=== PATIENT | female | born 2000 | race African-American/Black ===

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

== ENCOUNTER 2019-02-02 13:55 | Emergency (ER) | payer OTHER, SELFPAY ==
[~2019-02-02] VITALS: Ht 157.5 cm; Wt 84.4 kg
[~2019-02-02 13:55] MED LIST changes: +ACYC800T PO; +HYDR-3164 PO; +NITR100C62 PO
[2019-02-02] MEDS ORDERED: IV NORMAL SALINE 1000ML BAG 1,000 ML IV SCH (15:07)
[2019-02-02] MEDS ORDERED: ONDANSETRON PF 4 MG/2 ML VIAL. IV ONE (15:15)
[2019-02-02 15:22] LABS: BILIRUBIN,URINE NEGATIVE (NEG); CLARITY,URINE CLEAR; COLOR,URINE YELLOW; NITRITE,URINE NEGATIVE (NEG); PROTEIN,URINE NEGATIVE (NEG-TRACE); UROBILINOGEN,URINE 0.2 mg/dL (0.2 mg/dL)
--- NOTE | 2019-02-02 15:24 | PHYS DOC ---
Past Medical History Past Medical History: No Pertinent History Past Surgical History: No Surgical History Additional Information: non smoker Alcohol Use: None Drug Use: None Adult General Chief Complaint Chief Complaint: NAUSEA/VOMITING/DIARRHA HPI HPI Patient is a 18-year-old female who presents with nausea vomiting and diarrhea since 10 AM this morning. States that she has vomited 10 times at home. Has also been constantly having diarrhea. She denies fevers. Also states that she has not had a period since December 06 she is not on control. She rates her pain as 5 out of 10 and cramping. Review of Systems Review of Systems Constitutional: Denies fever or chills [] Eyes: Denies change in visual acuity, redness, or eye pain [] HENT: Denies nasal congestion or sore throat [] Respiratory: Denies cough or shortness of breath [] Cardiovascular: No additional information not addressed in HPI [] GI: Reports abdominal pain, nausea, vomiting but denies bloody stools or diarrhea [] : Denies dysuria or hematuria [] Musculoskeletal: Denies back pain or joint pain [] Integument: Denies rash or skin lesions [] Neurologic: Denies headache, focal weakness or sensory changes [] Endocrine: Denies polyuria or polydipsia [] Complete systems were reviewed and found to be within normal limits, except as documented in this note. Current Medications Current Medications Current Medications Medications (Trade) Dose Ordered Sig/Lorelei Start Time Stop Time Status Last Admin Dose Admin Ondansetron HCl (Zofran) 4 mg 1X ONCE 02/02/19 15:15 02/02/19 15:16 DC 02/02/19 15:47 4 MG Sodium Chloride 1,000 ml @ 1,000 mls/hr Q1H 02/02/19 15:07 02/02/19 16:06 DC 02/02/19 15:47 1,000 MLS/HR Allergies Allergies Allergies Coded Allergies Type Severity Reaction Last Updated Verified latex Allergy Intermediate Swelling. 06/23/18 Yes Physical Exam Physical Exam Constitutional: Well developed, well nourished, no acute distress, non-toxic appearance. [] HENT: Normocephalic, atraumatic, bilateral external ears normal, oropharynx moist, no oral exudates, nose normal. [] Eyes: PERRLA, EOMI, conjunctiva normal, no discharge. [] Neck: Normal range of motion, no tenderness, supple, no stridor. [] Cardiovascular:Heart rate regular rhythm, no murmur [] Lungs & Thorax: Bilateral breath sounds clear to auscultation [] Abdomen: Bowel sounds normal, soft, diffuse tenderness, no masses, no pulsatile masses. [] Skin: Warm, dry, no erythema, no rash. [] Back: No tenderness, no CVA tenderness. [] Extremities: No tenderness, no cyanosis, no clubbing, ROM intact, no edema. [] Neurologic: Alert and oriented X 3, normal motor function, normal sensory function, no focal deficits noted. [] Psychologic: Affect normal, judgement normal, mood normal. [] Current Patient Data Vital Signs Vital Signs Date Time Temp Pulse Resp B/P (MAP) Pulse Ox O2 Delivery O2 Flow Rate FiO2 02/02/19 16:30 73 15 128/77 (94) 100 Room Air 02/02/19 14:30 98.3 98.3 Lab Values Laboratory Tests Test 02/02/19 14:50 02/02/19 14:55 02/02/19 15:20 02/02/19 15:52 Urine Collection Type Unknown Urine Color Yellow Urine Clarity Clear Urine pH 6.0 Urine Specific [place] >=1.030 Urine Protein Negative mg/dL (NEG-TRACE) Urine Glucose (UA) Negative mg/dL (NEG) Urine Ketones (Stick) 15 mg/dL (NEG) Urine Blood Negative (NEG) Urine Nitrite Negative (NEG) Urine Bilirubin Negative (NEG) Urine Urobilinogen Dipstick 0.2 mg/dL (0.2 mg/dL) Urine Leukocyte Esterase Trace (NEG) Urine RBC 0 /HPF (0-2) Urine WBC 1-4 /HPF (0-4) Urine Squamous Epithelial Cells Mod /LPF Urine Bacteria 0 /HPF (0-FEW) Urine Mucus Marked /LPF POC Urine HCG, Qualitative Hcg positive (Negative) White Blood Count 7.2 x10^3/uL (4.0-11.0) Red Blood Count 4.53 x10^6/uL (3.50-5.40) Hemoglobin 12.5 g/dL (12.0-15.5) Hematocrit 38.2 % (36.0-47.0) Mean Corpuscular Volume 84 fL (79-100) Mean Corpuscular Hemoglobin 28 pg (25-35) Mean Corpuscular Hemoglobin Concent 33 g/dL (31-37) Red Cell Distribution Width 14.3 % (11.5-14.5) Platelet Count 256 x10^3/uL (140-400) Neutrophils (%) (Auto) 75 % (31-73) H Lymphocytes (%) (Auto) 16 % (24-48) L Monocytes (%) (Auto) 7 % (0-9) Eosinophils (%) (Auto) 2 % (0-3) Basophils (%) (Auto) 0 % (0-3) Neutrophils # (Auto) 5.5 x10^3uL (1.8-7.7) Lymphocytes # (Auto) 1.2 x10^3/uL (1.0-4.8) Monocytes # (Auto) 0.5 x10^3/uL (0.0-1.1) Eosinophils # (Auto) 0.1 x10^3/uL (0.0-0.7) Basophils # (Auto) 0.0 x10^3/uL (0.0-0.2) Sodium Level 136 mmol/L (136-145) Potassium Level 4.1 mmol/L (3.5-5.1) Chloride Level 102 mmol/L (98-107) Carbon Dioxide Level 22 mmol/L (21-32) Anion Gap 12 (6-14) Blood Urea Nitrogen 7 mg/dL (7-20) Creatinine 0.8 mg/dL (0.6-1.0) Estimated GFR (Cockcroft-Gault) 111.8 BUN/Creatinine Ratio 9 (6-20) Glucose Level 82 mg/dL (70-99) Calcium Level 9.1 mg/dL (8.5-10.1) Total Bilirubin 0.6 mg/dL (0.2-1.0) Aspartate Amino Transferase (AST) 18 U/L (15-37) Alanine Aminotransferase (ALT) 23 U/L (14-59) Alkaline Phosphatase 73 U/L (46-116) Total Protein 7.6 g/dL (6.4-8.2) Albumin 3.6 g/dL (3.4-5.0) Albumin/Globulin Ratio 0.9 (1.0-1.7) L Lipase 171 U/L (73-393) Maternal Serum HCG Beta Subunit 00355 mIU/mL (0-5) H Laboratory Tests 02/02/19 15:20 Laboratory Tests 02/02/19 15:20 EKG EKG [] Radiology/Procedures Radiology/Procedures []PATIENT: VALENTE FREEMAN RACCOUNT: [id number]#: [id number] : 2000 LOCATION: ER AGE: 18 SEX: F EXAM STATUS: REG ER ORD. PHYSICIAN: HERNÁN PIÑA APRN REASON: r/o ectopic/cramping PROCEDURE: OB < 14 WKS Obstetrical ultrasound, 02/02/2019: History: Cramping, Transabdominal scans were obtained. The uterus contains a single gestational sac. The gestational sac contains a pole demonstrating a crown-rump length of 9 mm compatible with a gestational age of 6 weeks and 6 days. This yields a sonographic EDC of 09/22/2019. cardiac activity is present with a heart rate of 139 bpm. There is no evidence of subchorionic hemorrhage. There is a 3 cm simple cyst in the right ovary. The left ovary is normal. The adnexal regions are otherwise unremarkable. No free fluid is evident in the pelvis. IMPRESSION: 1. Single viable intrauterine fetus of approximately 7 weeks gestational age. 2. Small right ovarian cyst. Course & Med Decision Making Course & Med Decision Making Pertinent Labs and Imaging studies reviewed. (See chart for details) Discussed signs and symptoms with patient. Will order urine test, ur inalysis, labs, and supportive care. Offered CT scan pending urine . Patient declined. Patient is . Will order beta hcg and order ultrasound to r/o ectopic. Ultrasound shows viable fetus and labs are unremarkable. Did show slight UTI. Will send home on Keflex. Will send patient home to follow up with [facility]. John Disclaimer Dragon Disclaimer This electronic medical record was generated, in whole or in part, using a voice recognition dictation system. Departure Departure Impression: Primary Impression: Additional Impressions: Nausea and vomiting during Urinary tract infection Disposition: HOME, SELF-CARE Condition: STABLE Referrals: NO PCP (PCP) SAIMA GALVAN Jr, MD Patient Instructions: ABCs of , Nausea and Vomiting, [id number], - Urinary Tract Infection Additional Instructions: Please follow up with [facility]. Please take all of antibiotic. Use Zofran as needed for n/v. Come back if any concerning symptoms. Scripts Pnv Cmb#95/Ferrous Fumarate/Fa ( TABLET) 1 Each Tablet 1 TAB PO DAILY, #30 TAB 11 Refills Prov: HERNÁN PIÑA APRN 02/02/19 Ondansetron (ONDANSETRON ODT) 4 Mg Tab.rapdis 1 TAB PO PRN Q6-8HRS, #20 TAB Prov: HERNÁN PIÑA APRN 02/02/19 Cephalexin (KEFLEX) 500 Mg Capsule 1 CAP PO BID for 7 Days, #14 CAP Prov: HERNÁN PIÑA APRN 02/02/19 Problem Qualifiers Primary Impression: Weeks of gestation: less than 8 weeks Qualified Codes: Z3A.01 - Less than 8 weeks gestation of HERNÁN PIÑA APRN February 02, 2019 15:24
[2019-02-02 15:30] LABS: BASO % 0 % (0-3); EOS # 0.1 x10^3/uL (0.0-0.7); EOS % 2 % (0-3); HEMATOCRIT 38.2 % (36.0-47.0); HEMOGLOBIN 12.5 g/dL (12.0-15.5); LYMPH # 1.2 x10^3/uL (1.0-4.8); LYMPH % 16 % (24-48); MEAN CORPUSCULAR HEMOGLOBIN 28 pg (25-35); MEAN CORPUSCULAR HGB CONC 33 g/dL (31-37); MEAN CORPUSCULAR VOLUME 84 fL (79-100); MONO # 0.5 x10^3/uL (0.0-1.1); MONO % 7 % (0-9); NEUT # 5.5 x10^3uL (1.8-7.7); NEUT % 75 % (31-73); PLATELET COUNT 256 x10^3/uL (140-400); RED BLOOD COUNT 4.53 x10^6/uL (3.50-5.40); RED CELL DISTRIBUTION WIDTH 14.3 % (11.5-14.5); WHITE BLOOD COUNT 7.2 x10^3/uL (4.0-11.0)
[2019-02-02 15:34] LABS: BACTERIA,URINE 0 /HPF (0-FEW); RBC,URINE 0 /HPF (0-2); SQUAMOUS EPITHELIAL CELL,UR MOD /LPF
[2019-02-02 15:44] LABS: CALCIUM 9.1 mg/dL (8.5-10.1); CREATININE 0.8 mg/dL (0.6-1.0); GFR 111.8; POTASSIUM 4.1 mmol/L (3.5-5.1)
[2019-02-02 15:57] LABS: ALBUMIN 3.6 g/dL (3.4-5.0); ALBUMIN/GLOBULIN RATIO 0.9 (1.0-1.7); TOTAL BILIRUBIN 0.6 mg/dL (0.2-1.0); TOTAL PROTEIN 7.6 g/dL (6.4-8.2)
[2019-02-02 16:30] VITALS: BP 128/77
--- NOTE | 2019-02-02 16:56 | RAD ---
Obstetrical ultrasound, 02/02/2019: History: Cramping, Transabdominal scans were obtained. The uterus contains a single gestational sac. The gestational sac contains a pole demonstrating a crown-rump length of 9 mm compatible with a gestational age of 6 weeks and 6 days. This yields a sonographic EDC of 09/22/2019. cardiac activity is present with a heart rate of 139 bpm. There is no evidence of subchorionic hemorrhage. There is a 3 cm simple cyst in the right ovary. The left ovary is normal. The adnexal regions are otherwise unremarkable. No free fluid is evident in the pelvis. IMPRESSION: 1. Single viable intrauterine fetus of approximately 7 weeks gestational age. 2. Small right ovarian cyst.
[2019-02-02] MEDS ORDERED: CEPH-264 PO (17:37)
[2019-02-02] MEDS ORDERED: ONDA4TAB12 PO (17:37)
[2019-02-02] MEDS ORDERED: PNV1TABL25 PO (17:38)
== END 2019-02-02 17:49 | disposition home or self-care (01) ==
LOC: ER 13:55
DX: O21.8 Other vomiting complicating pregnancy (principal); O23.41 Unspecified infection of urinary tract in pregnancy, first trimester; R19.7 Diarrhea, unspecified; R10.84 Generalized abdominal pain; Z91.040 Latex allergy status; Z3A.01 Less than 8 weeks gestation of pregnancy
CPT/HCPCS: 36415; 76801; 80053; 81001; 81025; 83690; 84702; 85025; 86900; 86901; 96361; 96374; 99285; J2405; J7030

== ENCOUNTER 2019-02-06 11:56 | Emergency (ER) | payer OTHER, SELFPAY ==
[~2019-02-06] VITALS: Ht 157.5 cm; Wt 84.4 kg
[~2019-02-06 11:56] MED LIST changes: +CEPH-264 PO; +ONDA4TAB12 PO; +PNV1TABL25 PO
[2019-02-06 12:12] VITALS: BP 140/70
--- NOTE | 2019-02-06 13:21 | PHYS DOC ---
Past Medical History Past Medical History: No Pertinent History Past Surgical History: No Surgical History Alcohol Use: None Drug Use: None Adult General Chief Complaint Chief Complaint: [facility] HPI Patient is a 18 year old female A 1 at 7 weeks of gestation who presents with complaining of abdominal pain and vaginal bleeding since last night. Patient complaining of vaginal spotting with dark blood since last night and lower abdominal cramping pain without nausea, vomiting, urinary symptoms, diarrhea and constipation. Patient had intrauterine on 02/02/19 at 7 weeks of gestation and ultrasound with O+ blood type and hCG level of 75,000. Review of Systems Review of Systems Constitutional: Denies fever or chills [] Eyes: Denies change in visual acuity, redness, or eye pain [] HENT: Denies nasal congestion or sore throat [] Respiratory: Denies cough or shortness of breath [] Cardiovascular: No additional information not addressed in HPI [] GI: Reports abdominal pain, denies nausea, vomiting, bloody stools or diarrhea [] : Denies dysuria or hematuria [] Musculoskeletal: Denies back pain or joint pain [] Integument: Denies rash or skin lesions [] Neurologic: Denies headache, focal weakness or sensory changes [] Endocrine: Denies polyuria or polydipsia [] All other systems were reviewed and found to be within normal limits, except as documented in this note. Allergies Allergies Allergies Coded Allergies Type Severity Reaction Last Updated Verified latex Allergy Intermediate Swelling. 06/23/18 Yes Physical Exam Physical Exam Constitutional: Well developed, well nourished, no acute distress, non-toxic appearance. [] HENT: Normocephalic, atraumatic, oropharynx moist, no oral exudates, nose normal. [] Eyes: PERRLA, EOMI, conjunctiva normal, no discharge. [] Neck: Normal range of motion, no tenderness, supple, no stridor. [] Cardiovascular:Heart rate regular rhythm, no murmur [] Lungs & Thorax: Bilateral breath sounds clear to auscultation [] Abdomen: Bowel sounds normal, soft, no tenderness, no masses, no pulsatile masses. [] Skin: Warm, dry, no erythema, no rash. [] Back: No tenderness, no CVA tenderness. [] Extremities: No tenderness, no cyanosis, no clubbing, ROM intact, no edema. [] Neurologic: Alert and oriented X 3, normal motor function, normal sensory function, no focal deficits noted. [] Psychologic: Affect normal, judgement normal, mood normal. [] Current Patient Data Vital Signs Vital Signs Date Time Temp Pulse Resp B/P (MAP) Pulse Ox O2 Delivery O2 Flow Rate FiO2 02/06/19 12:12 98.2 99 20 140/70 (93) 98 Room Air 98.2 Lab Values Laboratory Tests Test 02/06/19 13:12 Urine Collection Type Unknown Urine Color [place] Urine Clarity Clear Urine pH 6.0 Urine Specific [place] >=1.030 Urine Protein Negative mg/dL (NEG-TRACE) Urine Glucose (UA) Negative mg/dL (NEG) Urine Ketones (Stick) Negative mg/dL (NEG) Urine Blood Negative (NEG) Urine Nitrite Negative (NEG) Urine Bilirubin Negative (NEG) Urine Urobilinogen Dipstick 1.0 mg/dL (0.2 mg/dL) Urine Leukocyte Esterase Small (NEG) Urine RBC 1-2 /HPF (0-2) Urine WBC 5-10 /HPF (0-4) Urine Squamous Epithelial Cells Mod /LPF Urine Bacteria Many /HPF (0-FEW) Urine Mucus Marked /LPF EKG EKG [] Radiology/Procedures Radiology/Procedures [][facility] [address] [place] [address] IMAGING REPORT Signed PATIENT: VALENTE FREEMAN ACCOUNT: [id number] : 2000 LOCATION: ER AGE: 18 SEX: F EXAM STATUS: REG ER ORD. PHYSICIAN: KERMIT ALMANZAR MD REASON: 7 weeks intrauterine , Vaginal bleeding and cramping pain PROCEDURE: OB < 14 WKS OB ultrasound less than 14 weeks 02/06/2019 CLINICAL HISTORY: First trimester with vaginal bleeding and cramping. TECHNIQUE: Using the distended urinary bladder as a sonographic window, a real-time ultrasound examination of pelvis was performed. Multiple images were obtained. FINDINGS: Comparison study is dated 02/02/2019. A gestational sac is again seen within the endometrial canal of the mid body of the uterus. Within this gestational sac an embryonic pole and associated yolk sac are seen. The CRL of the embryonic pole measures 1.19 cm. This corresponds to an estimated gestational age by ultrasound is 7 weeks 3 days plus or minus a standard deviation of 5 days. Embryonic cardiac activity is seen with a heart rate of 157 beats per minutes. The uterus is otherwise within normal limits. Since the previous examination there has been appropriate interval embryonic growth. Both ovaries are normal in size. The right ovary measures 4.4 x 3.6 x 3.0 cm in size. Within the right ovary a 2.3 cm corpus luteum is seen. The left ovary measures 3.9 x 2.0 x 2.1 cm in size. No adnexal mass is seen. No free fluid is noted. IMPRESSION: Single living IUP with a estimated gestational age by ultrasound of 7 weeks 3 days plus or minus a standard deviation of 5 days. Electronically signed by: Francois Wilhelm MD (02/06/2019 1:24 PM) [facility] DICTATED and SIGNED BY: FRANCOIS WILHELM MD DATE: 02/06/19 [id number] Course & Med Decision Making Course & Med Decision Making Pertinent Labs and Imaging studies reviewed. (See chart for details) Evaluation of patient in ER showed 18-year-old female patient presented with vaginal bleeding and abdominal pain during . Patient had intrauterine at 7 weeks with hCG level of 103,000 that increased from previous labs and mild UTI with O+ blood type. Patient had unremarkable physical exam. Plan discharge patient home to diagnose of UTI in and threatened . Dragon Disclaimer Dragon Disclaimer This electronic medical record was generated, in whole or in part, using a voice recognition dictation system. Departure Departure Impression: Primary Impression: Threatened Additional Impression: Urinary tract infection affecting Disposition: 01 HOME, SELF-CARE (at 1405) Condition: IMPROVED Referrals: UNKNOWN PCP NAME (PCP) Patient Instructions: - Urinary Tract Infection, Threatened Miscarriage Additional Instructions: Drink plenty of liquids Follow-up with your [facility] in 2-3 days Return to ER if not getting better Scripts Cephalexin (KEFLEX) 500 Mg Capsule 1 CAP PO Q8HRS, #21 CAP Prov: KERMIT ALMANZAR MD 02/06/19 Problem Qualifiers KERMIT ALMANZAR MD February 06, 2019 13:21
[2019-02-06 13:22] LABS: BILIRUBIN,URINE NEGATIVE (NEG); CLARITY,URINE CLEAR; COLOR,URINE AMBER; NITRITE,URINE NEGATIVE (NEG); PROTEIN,URINE NEGATIVE (NEG-TRACE)
--- NOTE | 2019-02-06 13:28 | RAD ---
OB ultrasound less than 14 weeks 02/06/2019 CLINICAL HISTORY: First trimester with vaginal bleeding and cramping. TECHNIQUE: Using the distended urinary bladder as a sonographic window, a real-time ultrasound examination of pelvis was performed. Multiple images were obtained. FINDINGS: Comparison study is dated 02/02/2019. A gestational sac is again seen within the endometrial canal of the mid body of the uterus. Within this gestational sac an embryonic pole and associated yolk sac are seen. The CRL of the embryonic pole measures 1.19 cm. This corresponds to an estimated gestational age by ultrasound is 7 weeks 3 days plus or minus a standard deviation of 5 days. Embryonic cardiac activity is seen with a heart rate of 157 beats per minutes. The uterus is otherwise within normal limits. Since the previous examination there has been appropriate interval embryonic growth. Both ovaries are normal in size. The right ovary measures 4.4 x 3.6 x 3.0 cm in size. Within the right ovary a 2.3 cm corpus luteum is seen. The left ovary measures 3.9 x 2.0 x 2.1 cm in size. No adnexal mass is seen. No free fluid is noted. IMPRESSION: Single living IUP with a estimated gestational age by ultrasound of 7 weeks 3 days plus or minus a standard deviation of 5 days. Electronically signed by: Francois العلي MD (02/06/2019 1:24 PM) [facility]
[2019-02-06 13:49] LABS: SQUAMOUS EPITHELIAL CELL,UR MOD /LPF
[2019-02-06 13:50] LABS: BACTERIA,URINE MANY /HPF (0-FEW)
[2019-02-06] MEDS ORDERED: CEPH-264 PO (14:07)
== END 2019-02-06 14:00 | disposition home or self-care (01) ==
LOC: ER 11:56
DX: O20.0 Threatened abortion (principal); O23.41 Unspecified infection of urinary tract in pregnancy, first trimester; Z91.040 Latex allergy status; Z3A.01 Less than 8 weeks gestation of pregnancy
CPT/HCPCS: 36415; 76801; 81001; 84702; 87086; 99285-25

== ENCOUNTER 2019-09-23 18:47 | Emergency (ER) | payer MEDICAID, OTHER ==
[~2019-09-23] VITALS: Ht 157.5 cm; Wt 77.1 kg
--- NOTE | 2019-09-23 19:55 | PHYS DOC ---
Past Medical History Past Medical History: No Pertinent History Additional Past Medical Histor: STILLBIRTH Past Surgical History: No Surgical History Additional Past Surgical Histo: CERVICAL CERCLAGE Alcohol Use: None Drug Use: None Adult General Chief Complaint Chief Complaint: ABDOMINAL PAIN IN HPI HPI 19-year-old female presents to the emergency department with complaints of low back and lower abdomen cramping. Patient states this is been ongoing 3 days. She describes her last menstrual period July. Which puts her approximately 7 weeks 5 days. Patient describes stillborn in May 2019 secondary to placental abruption. She has appointment scheduled for October 12 for OB establishment. She does describe discharge, denies any vaginal bleeding or leakage of fluid or that of dysuria. Review of Systems Review of Systems Constitutional: Denies fever or chills [] Respiratory: Denies cough or shortness of breath [] Cardiovascular: No additional information not addressed in HPI [] GI: abdominal cramping, no nausea, vomiting, bloody stools or diarrhea [] : Denies dysuria or hematuria, vaginal discharge [] Musculoskeletal: back cramping Neurologic: Denies headache, focal weakness or sensory changes [] All other systems were reviewed and found to be within normal limits, except as documented in this note. Allergies Allergies Allergies Coded Allergies Type Severity Reaction Last Updated Verified latex Allergy Intermediate Swelling. 06/23/18 Yes Physical Exam Physical Exam Constitutional: Well developed, well nourished, no acute distress, non-toxic appearance. [] Cardiovascular:Heart rate regular rhythm, no murmur [] Lungs & Thorax: Bilateral breath sounds clear to auscultation [] Abdomen: Bowel sounds normal, soft, no tenderness on my exam, no masses, no pulsatile masses. [] Skin: Warm, dry, no erythema, no rash. [] Back: No tenderness, no CVA tenderness. [] Extremities: No tenderness, no edema. [] Neurologic: Alert and oriented X 3, no focal deficits noted. [] Psychologic: Affect normal, judgement normal, mood normal. [] : Vaginal speculum exam performed, no evidence of bleeding or fluid, mucousy discharge present, evidence of yeast appreciated. Wet prep obtained Current Patient Data Vital Signs Vital Signs Date Time Temp Pulse Resp B/P (MAP) Pulse Ox O2 Delivery O2 Flow Rate FiO2 09/23/19 19:09 98.3 87 16 133/81 (98) 99 Room Air 98.3 Lab Values Laboratory Tests Test 09/23/19 19:08 09/23/19 19:12 09/23/19 20:18 Urine Collection Type Unknown Urine Color Yellow Urine Clarity Cloudy Urine pH 6.0 Urine Specific [place] 1.025 Urine Protein Negative mg/dL (NEG-TRACE) Urine Glucose (UA) Negative mg/dL (NEG) Urine Ketones (Stick) Negative mg/dL (NEG) Urine Blood Negative (NEG) Urine Nitrite Negative (NEG) Urine Bilirubin Negative (NEG) Urine Urobilinogen Dipstick 1.0 mg/dL (0.2 mg/dL) Urine Leukocyte Esterase Small (NEG) Urine RBC 0 /HPF (0-2) Urine WBC 5-10 /HPF (0-4) Urine Squamous Epithelial Cells Many /LPF Urine Calcium Phosphate Crystals /HPF Urine Amorphous Sediment Present /HPF Urine Bacteria Few /HPF (0-FEW) Urine Mucus Marked /LPF POC Urine HCG, Qualitative Hcg positive (Negative) White Blood Count 9.1 x10^3/uL (4.0-11.0) Red Blood Count 4.62 x10^6/uL (3.50-5.40) Hemoglobin 12.2 g/dL (12.0-15.5) Hematocrit 36.7 % (36.0-47.0) Mean Corpuscular Volume 80 fL (79-100) Mean Corpuscular Hemoglobin 26 pg (25-35) Mean Corpuscular Hemoglobin Concent 33 g/dL (31-37) Red Cell Distribution Width 16.5 % (11.5-14.5) H Platelet Count 247 x10^3/uL (140-400) Neutrophils (%) (Auto) 62 % (31-73) Lymphocytes (%) (Auto) 29 % (24-48) Monocytes (%) (Auto) 6 % (0-9) Eosinophils (%) (Auto) 2 % (0-3) Basophils (%) (Auto) 1 % (0-3) Neutrophils # (Auto) 5.7 x10^3/uL (1.8-7.7) Lymphocytes # (Auto) 2.6 x10^3/uL (1.0-4.8) Monocytes # (Auto) 0.6 x10^3/uL (0.0-1.1) Eosinophils # (Auto) 0.2 x10^3/uL (0.0-0.7) Basophils # (Auto) 0.0 x10^3/uL (0.0-0.2) Maternal Serum HCG Beta Subunit 97087 mIU/mL (0-5) H Sodium Level 138 mmol/L (136-145) Potassium Level 3.6 mmol/L (3.5-5.1) Chloride Level 104 mmol/L (98-107) Carbon Dioxide Level 25 mmol/L (21-32) Anion Gap 9 (6-14) Blood Urea Nitrogen 8 mg/dL (7-20) Creatinine 0.8 mg/dL (0.6-1.0) Estimated GFR (Cockcroft-Gault) 110.7 BUN/Creatinine Ratio 10 (6-20) Glucose Level 82 mg/dL (70-99) Calcium Level 9.1 mg/dL (8.5-10.1) Total Bilirubin 0.2 mg/dL (0.2-1.0) Aspartate Amino Transferase (AST) 12 U/L (15-37) L Alanine Aminotransferase (ALT) 16 U/L (14-59) Alkaline Phosphatase 77 U/L (46-116) Total Protein 7.7 g/dL (6.4-8.2) Albumin 3.5 g/dL (3.4-5.0) Albumin/Globulin Ratio 0.8 (1.0-1.7) L Laboratory Tests 09/23/19 20:18 Laboratory Tests 09/23/19 20:18 Microbiology 09/23/19 Wet Prep - Final, Complete EKG EKG [] Radiology/Procedures Radiology/Procedures [] Course & Med Decision Making Course & Med Decision Making Pertinent Labs and Imaging studies reviewed. (See chart for details) []19-year-old female presents to the emergency department with complaints of low back and lower abdomen cramping. Patient states this is been ongoing 3 days. She describes her last menstrual period July. Which puts her approximately 7 weeks 5 days. Patient describes stillborn in May 2019 secondary to placental abruption. She has appointment scheduled for October 12 for OB establishment. She does describe discharge, denies any vaginal bleeding or leakage of fluid or that of dysuria. Labs/Imaging reviewed Evidence of BV appreciated on wet prep US reviewed with consistent dates Recommend po flagyl and dc home with follow up of PCP/OB Return precautions provided John Disclaimer John Disclaimer This electronic medical record was generated, in whole or in part, using a voice recognition dictation system. Departure Departure Impression: Primary Impression: Abdominal pain in Additional Impression: Bacterial vaginosis Disposition: HOME, SELF-CARE Condition: STABLE Referrals: NO PCP (PCP) Patient Instructions: Abdominal Pain During , [id number], Bacterial Vaginosis, [id number] Additional Instructions: Recommend follow up with PCP 3 - 5 days Return to the ER with worsening symptoms, intractable pain, fever, altered mental status Tylenol/Motrin as needed for pain Take antibiotics as prescribed Scripts Metronidazole (FLAGYL) 500 Mg Tablet 1 TAB PO BID, #14 TAB Prov: CESAR POWELL MD 09/23/19 Problem Qualifiers Primary Impression: Abdominal pain in Trimester: unspecified trimester Qualified Codes: O26.899 - Other specified related conditions, unspecified trimester; R10.9 - Unspecified abdominal pain CESAR POWELL MD Sep 23, 2019 19:55
[2019-09-23 20:05] LABS: BILIRUBIN,URINE NEGATIVE (NEG); CLARITY,URINE CLOUDY; COLOR,URINE YELLOW; NITRITE,URINE NEGATIVE (NEG); PROTEIN,URINE NEGATIVE (NEG-TRACE)
[2019-09-23 20:15] LABS: BACTERIA,URINE FEW /HPF (0-FEW); RBC,URINE 0 /HPF (0-2); SQUAMOUS EPITHELIAL CELL,UR MANY /LPF
[2019-09-23 20:16] LABS: AMORPHOUS SEDIMENT,UR PRESENT /HPF
[2019-09-23 20:25] LABS: BASO % 1 % (0-3); EOS # 0.2 x10^3/uL (0.0-0.7); EOS % 2 % (0-3); HEMATOCRIT 36.7 % (36.0-47.0); HEMOGLOBIN 12.2 g/dL (12.0-15.5); LYMPH # 2.6 x10^3/uL (1.0-4.8); LYMPH % 29 % (24-48); MEAN CORPUSCULAR HEMOGLOBIN 26 pg (25-35); MEAN CORPUSCULAR HGB CONC 33 g/dL (31-37); MEAN CORPUSCULAR VOLUME 80 fL (79-100); MONO # 0.6 x10^3/uL (0.0-1.1); MONO % 6 % (0-9); NEUT # 5.7 x10^3/uL (1.8-7.7); NEUT % 62 % (31-73); PLATELET COUNT 247 x10^3/uL (140-400); RED BLOOD COUNT 4.62 x10^6/uL (3.50-5.40); RED CELL DISTRIBUTION WIDTH 16.5 % (11.5-14.5); WHITE BLOOD COUNT 9.1 x10^3/uL (4.0-11.0)
[2019-09-23 20:33] LABS: CALCIUM 9.1 mg/dL (8.5-10.1); CREATININE 0.8 mg/dL (0.6-1.0); GFR 110.7; POTASSIUM 3.6 mmol/L (3.5-5.1)
[2019-09-23 20:39] LABS: ALBUMIN 3.5 g/dL (3.4-5.0); ALBUMIN/GLOBULIN RATIO 0.8 (1.0-1.7); TOTAL BILIRUBIN 0.2 mg/dL (0.2-1.0); TOTAL PROTEIN 7.7 g/dL (6.4-8.2)
--- NOTE | 2019-09-23 21:23 | RAD ---
Examination: OB <14 WKS W/TV History: Abdominal pain in Comparison/Correlation: None Findings: OB ultrasound exam was performed. Transabdominal and transvaginal technique were utilized. Uterus measures 11.9 cm x 7.8 cm x 6.7 cm. Cervical length is 5 cm. Myometrium is normal. Intrauterine gestational sac is present. Yolk sac is present. pole is present with crown-rump length of 1.18 cm corresponding to 7 weeks 2 days gestation. Heart rate of 149 bpm. No subchronic hemorrhage. Right ovary measures 3.5 cm x 2.17 x 1.6. Left ovary measures 2.4 cm x 3.17 x 2.17. Normal ovarian flow is evident on color Doppler imaging. No adnexal mass lesions. No definite pelvic free fluid. Impression: Single living intrauterine gestation corresponds 7 weeks 2 days which approximates age by last menstrual period. No suspicious finding. Electronically signed by: Librado Alonzo MD (09/23/2019 9:21 PM) [employer]
[2019-09-23 21:32] VITALS: BP 116/77
[2019-09-23] MEDS ORDERED: METR500T PO (22:08)
== END 2019-09-23 22:12 | disposition home or self-care (01) ==
LOC: ER 18:47
DX: O23.591 Infection of other part of genital tract in pregnancy, first trimester (principal); B96.89 Other specified bacterial agents as the cause of diseases classified elsewhere; R10.30 Lower abdominal pain, unspecified; M54.5 Low back pain; Z3A.01 Less than 8 weeks gestation of pregnancy; Z91.040 Latex allergy status
CPT/HCPCS: 76801; 76817; 80053; 81001; 81025; 84702; 85025; 87086; 87491; 87591; 99285; Q0111

== ENCOUNTER 2019-10-14 08:39 | Emergency (ER) | payer MEDICAID ==
[~2019-10-14] VITALS: Ht 160 cm; Wt 92.5 kg
[~2019-10-14 08:39] MED LIST changes: +METR500T PO
[2019-10-14] MEDS ORDERED: ONDANSETRON PF 4 MG/2 ML VIAL. IV ONE (09:15)
--- NOTE | 2019-10-14 09:18 | PHYS DOC ---
Past Medical History Past Medical History: No Pertinent History Additional Past Medical Histor: STILLBIRTH Past Surgical History: No Surgical History Additional Past Surgical Histo: CERVICAL CERCLAGE Alcohol Use: None Drug Use: None Adult General Chief Complaint Chief Complaint: NAUSEA/VOMITING/DIARRHA HPI HPI Patient is a 19 year old female without history of medical problem who presents with complaint of nausea and vomiting and diarrhea. Patient is with LMP of July 31 at 10 weeks of gestation with complaints of a few episodes of nausea and vomiting for the last 4 days that getting worse since last night. Patient complaining of 5 episodes of nausea and vomiting episodes of diarrhea since last night with cramping abdominal pain without vaginal bleeding. Patient complaining of myalgia, nasal congestion, cough, earache and is not sure about fever. Patient denies sick contact. Patient had her first [facility] appointment 2 days ago. Review of Systems Review of Systems Constitutional: Denies fever or chills [] Eyes: Denies change in visual acuity, redness, or eye pain [] HENT: Denies nasal congestion or sore throat [] Respiratory: Denies cough or shortness of breath [] Cardiovascular: No additional information not addressed in HPI [] GI: Reports abdominal pain, nausea, vomiting, diarrhea [] : Denies dysuria or hematuria [] Musculoskeletal: Denies back pain or joint pain [] Integument: Denies rash or skin lesions [] Neurologic: Denies headache, focal weakness or sensory changes [] Endocrine: Denies polyuria or polydipsia [] All other systems were reviewed and found to be within normal limits, except as documented in this note. Current Medications Current Medications Current Medications Medications (Trade) Dose Ordered Sig/Lorelei Start Time Stop Time Status Last Admin Dose Admin Ondansetron HCl (Zofran) 4 mg 1X ONCE 10/14/19 09:15 10/14/19 09:16 DC 10/14/19 09:40 4 MG Sodium Chloride 1,000 ml @ 1,000 mls/hr Q1H 10/14/19 09:30 10/14/19 10:29 DC 10/14/19 09:37 1,000 MLS/HR Allergies Allergies Allergies Coded Allergies Type Severity Reaction Last Updated Verified latex Allergy Intermediate Swelling. 06/23/18 Yes Physical Exam Physical Exam Constitutional: Well developed, well nourished, mild distress, non-toxic appearance. [] HENT: Normocephalic, atraumatic, bilateral external ears normal, oropharynx dry, no oral exudates, nose normal. [] Eyes: PERRLA, EOMI, conjunctiva normal, no discharge. [] Neck: Normal range of motion, no tenderness, supple, no stridor. [] Cardiovascular:Heart rate regular rhythm, no murmur [] Lungs & Thorax: Bilateral breath sounds clear to auscultation [] Abdomen: Bowel sounds normal, soft, no tenderness, no masses, no pulsatile masses. [] Skin: Warm, dry, no erythema, no rash. [] Back: No tenderness, no CVA tenderness. [] Extremities: No tenderness, no cyanosis, no clubbing, ROM intact, no edema. [] Neurologic: Alert and oriented X 3, normal motor function, normal sensory function, no focal deficits noted. [] Psychologic: Affect normal, judgement normal, mood normal. [] Current Patient Data Vital Signs Vital Signs Date Time Temp Pulse Resp B/P (MAP) Pulse Ox O2 Delivery O2 Flow Rate FiO2 10/14/19 08:48 97.6 96 18 141/88 (105) 99 Room Air 97.6 Lab Values Laboratory Tests Test 10/14/19 08:50 10/14/19 09:25 10/14/19 09:29 Urine Collection Type Unknown Urine Color Yellow Urine Clarity Cloudy Urine pH 5.5 Urine Specific [place] >=1.030 Urine Protein 100 mg/dL (NEG-TRACE) Urine Glucose (UA) Negative mg/dL (NEG) Urine Ketones (Stick) Negative mg/dL (NEG) Urine Blood Negative (NEG) Urine Nitrite Negative (NEG) Urine Bilirubin Negative (NEG) Urine Urobilinogen Dipstick 0.2 mg/dL (0.2 mg/dL) Urine Leukocyte Esterase Small (NEG) Urine RBC Occ /HPF (0-2) Urine WBC 5-10 /HPF (0-4) Urine Squamous Epithelial Cells Many /LPF Urine Bacteria Moderate /HPF (0-FEW) Urine Mucus Mod /LPF Influenza Type A Antigen Negative (NEGATIVE) Influenza Type B Antigen Negative (NEGATIVE) White Blood Count 7.0 x10^3/uL (4.0-11.0) Red Blood Count 4.69 x10^6/uL (3.50-5.40) Hemoglobin 13.0 g/dL (12.0-15.5) Hematocrit 38.8 % (36.0-47.0) Mean Corpuscular Volume 83 fL (79-100) Mean Corpuscular Hemoglobin 28 pg (25-35) Mean Corpuscular Hemoglobin Concent 34 g/dL (31-37) Red Cell Distribution Width 16.2 % (11.5-14.5) H Platelet Count 208 x10^3/uL (140-400) Neutrophils (%) (Auto) 87 % (31-73) H Lymphocytes (%) (Auto) 7 % (24-48) L Monocytes (%) (Auto) 5 % (0-9) Eosinophils (%) (Auto) 2 % (0-3) Basophils (%) (Auto) 0 % (0-3) Neutrophils # (Auto) 6.1 x10^3/uL (1.8-7.7) Lymphocytes # (Auto) 0.5 x10^3/uL (1.0-4.8) L Monocytes # (Auto) 0.4 x10^3/uL (0.0-1.1) Eosinophils # (Auto) 0.1 x10^3/uL (0.0-0.7) Basophils # (Auto) 0.0 x10^3/uL (0.0-0.2) Segmented Neutrophils % 82 % (35-66) H Lymphocytes % 13 % (24-48) L Monocytes % 4 % (0-10) Eosinophils % 1 % (0-5) Platelet Estimate Adequate (ADEQUATE) Sodium Level 136 mmol/L (136-145) Potassium Level 4.3 mmol/L (3.5-5.1) Chloride Level 105 mmol/L (98-107) Carbon Dioxide Level 24 mmol/L (21-32) Anion Gap 7 (6-14) Blood Urea Nitrogen 10 mg/dL (7-20) Creatinine 0.8 mg/dL (0.6-1.0) Estimated GFR (Cockcroft-Gault) 110.7 BUN/Creatinine Ratio 13 (6-20) Glucose Level 91 mg/dL (70-99) Calcium Level 9.2 mg/dL (8.5-10.1) Total Bilirubin 0.3 mg/dL (0.2-1.0) Aspartate Amino Transferase (AST) 14 U/L (15-37) L Alanine Aminotransferase (ALT) 18 U/L (14-59) Alkaline Phosphatase 76 U/L (46-116) Total Protein 7.2 g/dL (6.4-8.2) Albumin 3.3 g/dL (3.4-5.0) L Albumin/Globulin Ratio 0.8 (1.0-1.7) L Lipase 153 U/L (73-393) Laboratory Tests 10/14/19 09:29 Laboratory Tests 10/14/19 09:29 EKG EKG [] Radiology/Procedures Radiology/Procedures [][facility] [address] [place] [address] IMAGING REPORT Signed PATIENT: VALENTE FREEMAN ACCOUNT: [id number] : 2000 LOCATION: ER AGE: 19 SEX: F EXAM STATUS: REG ER ORD. PHYSICIAN: KERMIT ALMANZAR MD REASON: 10 weeks pregnan, N/V/D/ abd pain PROCEDURE: OB < 14 WKS OB < 14 WKS History: 10 weeks . Nausea vomiting. Abdominal pain. Comparison: None. Technique: Grayscale and color Doppler imaging of the pelvis was performed using transabdominal technique. Findings: The uterus measures 13 x 8 x 8 cm in length. Intrauterine gestational sac with pole. [place]-rump length 3.67 m. Adjustment gestational age by ultrasound 10 weeks 4 days. No cardiac activity with heart rate 169 bpm. Right ovary measures 3.2 x 1.7 x 1.7 cm and is unremarkable. Left ovary measures 4.8 x 3.6 x 2.2 cm and is unremarkable. No adnexal masses are seen. No free fluid. IMPRESSION: 1. Single intrauterine with gestational age 10 weeks 4 days and heart [id number] bpm. Electronically signed by: Agusto Mendez DO (10/14/2019 10:47 AM) [facility] DICTATED and SIGNED BY: AGUSTO MENDEZ DO DATE: 10/14/19 1047 Course & Med Decision Making Course & Med Decision Making Pertinent Labs and Imaging studies reviewed. (See chart for details) discharge: I've spoken with the patient and/or caregivers. I've explained the patient's condition, diagnosis and treatment plan based on information available to me at this time. I've answered the patient's and/or caregivers questions and addressed any concerns. The patient and/or caregivers have a good understanding the patient's diagnosis, condition and treatment plan as can be expected at this point. Vital signs have been stabilized. The patient's condition is stable for discharge from the emergency department. The patient will pursue further outpatient evaluation with her primary care provider or other designated consulting physician as outlined in the discharge instructions. Patient and/or caregivers are agreeable to this plan of care and follow-up instructions have been explained in detail. The patient and/or caregivers have received these instructions in written format and expressed understanding of these discharge instructions. The patient and her caregivers are aware that if any significant change in condition or worsening of symptoms should prompt him to immediately return to this of the closest emergency department. If an emergent department is not readily available I would encourage him to call 911. John Disclaimer Dragon Disclaimer This electronic medical record was generated, in whole or in part, using a voice recognition dictation system. Departure Departure Impression: Primary Impression: Acute gastroenteritis Additional Impression: Urinary tract infection affecting Disposition: HOME, SELF-CARE (@1057) Condition: IMPROVED Referrals: NO PCP (PCP) Patient Instructions: - Urinary Tract Infection, Viral Gastroenteritis Additional Instructions: Drink plenty of liquids Follow-up with your physician in 3-5 days Return to ER if not getting better Do not eat solid food for the next 24 hours Thank you for visiting [facility]. We appreciate you trusting us with your care. If any additional problems come up don't hesitate to return to visit us. Please follow up with your primary care provider so they can plan additional care if needed and know about the problem that you had. If symptoms worsen come back to the Emergency Department. Any concerning symptoms that start such as chest pain, shortness of air, weakness or numbness on one side of the body, running high fevers or any other concerning symptoms return to the ER. Scripts Cephalexin (KEFLEX) 500 Mg Capsule 1 CAP PO Q8HRS, #21 CAP 0 Refills Prov: KERMIT ALMANZAR MD 10/14/19 Ondansetron Hcl (ZOFRAN) 4 Mg Tablet 1 TAB PO PRN Q6-8HRS for nausea, #12 TAB Prov: KERMIT ALMANZAR MD 10/14/19 Problem Qualifiers KERMIT ALMANZAR MD Oct 14, 2019 09:18
[2019-10-14] MEDS ORDERED: IV NORMAL SALINE 1000ML BAG 1,000 ML IV SCH (09:30)
[2019-10-14 09:33] LABS: BILIRUBIN,URINE NEGATIVE (NEG); CLARITY,URINE CLOUDY; COLOR,URINE YELLOW; NITRITE,URINE NEGATIVE (NEG); PH,URINE 5.5; PROTEIN,URINE 100 mg/dL (NEG-TRACE); UROBILINOGEN,URINE 0.2 mg/dL (0.2 mg/dL)
[2019-10-14 09:37] LABS: BASO % 0 % (0-3); EOS # 0.1 x10^3/uL (0.0-0.7); EOS % 2 % (0-3); HEMATOCRIT 38.8 % (36.0-47.0); LYMPH # 0.5 x10^3/uL (1.0-4.8); LYMPH % 7 % (24-48); MEAN CORPUSCULAR HEMOGLOBIN 28 pg (25-35); MEAN CORPUSCULAR HGB CONC 34 g/dL (31-37); MEAN CORPUSCULAR VOLUME 83 fL (79-100); MONO # 0.4 x10^3/uL (0.0-1.1); MONO % 5 % (0-9); NEUT # 6.1 x10^3/uL (1.8-7.7); NEUT % 87 % (31-73); PLATELET COUNT 208 x10^3/uL (140-400); RED BLOOD COUNT 4.69 x10^6/uL (3.50-5.40); RED CELL DISTRIBUTION WIDTH 16.2 % (11.5-14.5)
[2019-10-14 09:47] LABS: SQUAMOUS EPITHELIAL CELL,UR MANY /LPF
[2019-10-14 09:48] LABS: CALCIUM 9.2 mg/dL (8.5-10.1); CREATININE 0.8 mg/dL (0.6-1.0); GFR 110.7; POTASSIUM 4.3 mmol/L (3.5-5.1)
[2019-10-14 09:48] LABS: BACTERIA,URINE MODERATE /HPF (0-FEW); RBC,URINE OCC /HPF (0-2)
[2019-10-14 09:53] LABS: INFLUENZA A PATIENT NEGATIVE (NEGATIVE); INFLUENZA B PATIENT NEGATIVE (NEGATIVE)
[2019-10-14 09:55] LABS: ALBUMIN 3.3 g/dL (3.4-5.0); ALBUMIN/GLOBULIN RATIO 0.8 (1.0-1.7); TOTAL BILIRUBIN 0.3 mg/dL (0.2-1.0); TOTAL PROTEIN 7.2 g/dL (6.4-8.2)
[2019-10-14 10:24] LABS: % EOS 1 % (0-5); % LYMPHS 13 % (24-48); % MONOS 4 % (0-10); % SEGS 82 % (35-66); PLT ESTIMATE ADEQUATE (ADEQUATE)
--- NOTE | 2019-10-14 10:50 | RAD ---
OB < 14 WKS History: 10 weeks . Nausea vomiting. Abdominal pain. Comparison: None. Technique: Grayscale and color Doppler imaging of the pelvis was performed using transabdominal technique. Findings: The uterus measures 13 x 8 x 8 cm in length. Intrauterine gestational sac with pole. [place]-rump length 3.67 m. Adjustment gestational age by ultrasound 10 weeks 4 days. No cardiac activity with heart rate 169 bpm. Right ovary measures 3.2 x 1.7 x 1.7 cm and is unremarkable. Left ovary measures 4.8 x 3.6 x 2.2 cm and is unremarkable. No adnexal masses are seen. No free fluid. IMPRESSION: 1. Single intrauterine with gestational age 10 weeks 4 days and heart [id number] bpm. Electronically signed by: Agusto Bear DO (10/14/2019 10:47 AM) [id number]
[2019-10-14 11:00] VITALS: BP 124/82
[2019-10-14] MEDS ORDERED: CEPH-264 PO (11:02)
[2019-10-14] MEDS ORDERED: ONDA4TAB7 PO (11:02)
== END 2019-10-14 11:38 | disposition home or self-care (01) ==
LOC: ER 08:39
DX: O23.41 Unspecified infection of urinary tract in pregnancy, first trimester (principal); O99.611 Diseases of the digestive system complicating pregnancy, first trimester; K52.9 Noninfective gastroenteritis and colitis, unspecified; Z3A.10 10 weeks gestation of pregnancy; Z91.040 Latex allergy status
CPT/HCPCS: 36415; 76801; 80053; 81001; 83690; 85007; 85025; 87086; 87804; 96361; 96374; 99285; J2405; J7030